=== PATIENT | male | born 1975 | race African-American/Black ===

== ENCOUNTER 2021-05-11 21:29 | Emergency (ER) | payer OTHER ==
[2021-05-11 21:39] VITALS: TEMP 97.9
[2021-05-11 23:16] VITALS: RESP 20
[2021-05-11] MEDS ORDERED: LORazepam 1 MG TAB PO STA (23:17)
--- NOTE | 2021-05-12 | ED ---
General Adult HPI - General Chief complaint: Anxiety Stated complaint: anxiety Time Seen by Provider: 05/11/21 22:33 Source: patient, EMS Mode of arrival: ambulatory Limitations: no limitations - History of Present Illness Initial comments: 46 year-old male patient presents to the emergency department for evaluation of shortness of breath and anxiety. Patient states symptoms started after he used a THC vape pen for the first time. States that occasionally he will feel his chest tighten. Denies any significant pain. Denies cough or congestion. Denies numbness, tingling, dizziness, or weakness. Denies headache, blurred vision, or double vision. Patient denies any recent rash, fever, chills, abdominal pain, nausea, vomiting, diarrhea, constipation, back pain, hematuria, dysuria, urinary urgency, urinary frequency, or any other complaints. - Related Data Allergies Allergy/AdvReac Type Severity Reaction Status Date / Time No Known Allergies Allergy Verified 05/11/21 21:38 Review of Systems ROS Statement: Those systems with pertinent positive or pertinent negative responses have been documented in the HPI. ROS Other: All systems not noted in ROS Statement are negative. Past Medical History Past Medical History: No Reported History History of Any Multi-Drug Resistant Organisms: None Reported Past Surgical History: Hernia Repair Past Psychological History: No Psychological Hx Reported Smoking Status: Never smoker Past Alcohol Use History: Occasional Past Drug Use History: Marijuana General Exam Limitations: no limitations General appearance: alert, in no apparent distress, other (This is a well- developed, well-nourished adult male patient in no acute distress. Vital signs upon presentation are temperature 97.9, pulse 102, respirations 18, blood pressure 166/91, pulse ox 99% on room air.) Eye exam: Present: normal appearance, PERRL, EOMI. Absent: scleral icterus, conjunctival injection, periorbital swelling ENT exam: Present: normal exam, normal oropharynx, mucous membranes moist Respiratory exam: Present: normal lung sounds bilaterally. Absent: respiratory distress, wheezes, rales, rhonchi, stridor Cardiovascular Exam: Present: normal rhythm, tachycardia, normal heart sounds. Absent: systolic murmur, diastolic murmur, rubs, gallop, clicks GI/Abdominal exam: Present: soft, normal bowel sounds. Absent: distended, tenderness, guarding, rebound, rigid Neurological exam: Present: alert, oriented X3, CN II-XII intact Psychiatric exam: Present: normal affect, normal mood Skin exam: Present: warm, dry, intact, normal color. Absent: rash Course Vital Signs 05/11/21 05/11/21 05/11/21 21:34 22:57 23:28 Temperature 97.9 F Pulse Rate 102 H 90 86 Respiratory 18 20 20 Rate Blood Pressure 166/91 166/120 157/85 O2 Sat by Pulse 99 100 100 Oximetry 05/12/21 05/12/21 00:25 01:33 Temperature Pulse Rate 92 86 Respiratory 20 20 Rate Blood Pressure 162/99 148/90 O2 Sat by Pulse 98 99 Oximetry EKG Findings - EKG Comments: EKG Findings:: EKG obtained at 2145 shows normal sinus rhythm with a ventricular rate of 99, TN interval 188, QR quaker 98, QT 354, QTC 454. No evidence of ST elevation or depression. Medical Decision Making - Medical Decision Making 46 year-old male patient presents to the emergency department for evaluation of increased anxiety after using a THC vape pen. He reported shortness of breath and mild chest discomfort. Physical examination was unremarkable. EKG was normal. Chest xray negative. Covid negative. He was given dose of ativan. Upon re-evaluation he is resting comfortable in bed. States symptoms are improved. He'll be discharged follow-up with his primary care physician for recheck in 1-2 days. Return parameters were discussed in detail. He verbalizes understanding and agrees with this plan. Case discussed with my attending Dr. Garcia. - Lab Data Lab Results 05/11/21 Range/Units 23:22 Coronavirus (PCR) Not Detected (Not Detectd) - Radiology Data Radiology results: report reviewed, image reviewed Two-view x-ray of the chest is obtained. Report reviewed in its entirety. Impression by Dr. Hammond shows no active cardiopulmonary disease. Normal heart. Disposition Clinical Impression: Anxiety, Shortness of breath Disposition: HOME SELF-CARE Condition: Good Instructions (If sedation given, give patient instructions): Anxiety (ED), Shortness of Breath (ED) Additional Instructions: Follow up with her primary care physician for recheck in 1-2 days. Return to the emergency department for any new, worsening, or concerning symptoms. Is patient prescribed a controlled substance at d/c from ED?: No Referrals: None,Stated [Primary Care Provider] - 1-2 days Time of Disposition: 01:26
--- NOTE | 2021-05-12 00:43 | XR ---
EXAMINATION TYPE: XR chest 2V DATE OF EXAM: 05/11/2021 COMPARISON: NONE HISTORY: Short of breath TECHNIQUE: 2 views FINDINGS: There is no heart failure nor confluent pneumonic infiltrate. Costophrenic angles are clear . There are small calcified granuloma in the right middle lobe. There are no hilar masses. There are chest leads. Bony thorax is intact. IMPRESSION: No active cardiopulmonary disease. Normal heart.
[2021-05-12 01:34] VITALS: BP 148/90; PULSE 86
== END 2021-05-12 01:34 | disposition home or self-care (01) ==
LOC: EC 21:29
DX: F41.9 Anxiety disorder, unspecified (principal); R06.02 Shortness of breath; F12.90 Cannabis use, unspecified, uncomplicated; Z20.822 Contact with and (suspected) exposure to COVID-19
CPT/HCPCS: 71046; 87635; 93005; 99285